=== PATIENT | female | born 1950 | race Caucasian/White ===

== ENCOUNTER 2017-01-23 05:09 | Emergency (ER) | payer MEDICARE, OTHER ==
[2017-01-23] MEDS ORDERED: HYDROmorphone HCL/PF 2 MG/ML DISP.SYRIN IVP ONE (05:44)
--- NOTE | 2017-01-23 05:49 | ED Physician Documentation ---
Shoulder Injury/Pain - HISTORIAN Historian: patient - HPI Stated Complaint: Fell to Rt shoulder Chief Complaint: Shoulder Injury/ Pain Additional Information: fell tripped, landing fully on her right shoulder, but not complaining of much pain. Onset: just prior to arrival Where: home Severity: mild Pain: persistent Context: fall Associated Symptoms: unable to move shoulder. denies: weakness, bruising, tingling, numbness Further Comments: no - ROS CONST: no problems CVS/RESP: none GI/: denies: nausea, vomiting MS/SKIN/LYMPH: none, foot swelling, ankle swelling. denies: neck pain, back pain NEURO: none - PAST HX Past History: Rt handed Allergies/Adverse Reactions: Allergies Allergy/AdvReac Type Severity Reaction Status Date / Time No Known Allergies Allergy Verified 01/23/17 05:29 Home Medications: Ambulatory Orders Medication Instructions Recorded Aspirin [Savanna] 81 mg PO D 01/23/17 Cholecalciferol [Vitamin D-3] 1,000 units PO D 01/23/17 Furosemide [Furosemide] 40 mg PO D 01/23/17 Lovastatin [Lovastatin] 40 mg PO D 01/23/17 Metoprolol Tartrate [Metoprolol 50 mg PO BID 01/23/17 Tartrate] Multivit-Min/FA/Lycopene/Lut 1 tab PO D 01/23/17 [Centrum Silver Tablet] - SOCIAL HX Smoking History: non-smoker Alcohol Use: none Drug Use: none - FAMILY HX Family History: none - VITAL SIGNS Vital Signs: Vital Signs Temp Pulse Resp BP Pulse Ox 79 20 125/74 96 01/23/17 05:09 01/23/17 05:09 01/23/17 05:09 01/23/17 05:09 - REVIEWED ASSESSMENT Nursing Assessment Reviewed: Yes Vitals Reviewed: Yes Progress - Progress Progress: spoke with ortho from dr carolynn hudson, he recommends dc'ing her home, to follow up this morning with in his clinic this AM. ED Results Lab/Radiology - Radiology Radiology Impressions: fracture dislocation R humeral head and neck - Orders Orders: ED Orders Category Date Time Status Place Saline Lock/IV Now Care 01/23/17 05:44 Active SHOULDER 2 VIEWS OR MORE [RAD] Stat Exams 01/23/17 Completed HYDROmorphone HCL/PF [Dilaudid] Med 01/23/17 05:44 Discontinued 2 mg IVP NOW ONE Shoulder Injury Physical Exam - Physical Exam General Appearance: no acute distress, alert Shoulder: deformity, AC drop-off, held in abduction, held in internal rotation Upper Extremity: no injury below shoulder Neuro: sensation nml. No: sensory deficit Vascular: no vascular compromise Skin: warm/dry, normal color Head/ENT: nml inspection Respiratory: chest non-tender CVS: reg rate & rhythm Abdomen: soft Discharge Clincal Impression: Fracture of humeral head, right, closed Qualifiers: Encounter type: initial encounter Qualified Code(s): S42.291A - Other displaced fracture of upper end of right humerus, initial encounter for closed fracture Dislocation, shoulder, anterior Qualifiers: Encounter type: initial encounter Laterality: right Qualified Code(s): S43.014A - Anterior dislocation of right humerus, initial encounter Fracture of neck of humerus Qualifiers: Encounter type: initial encounter Fracture type: closed Laterality: right Qualified Code(s): S42.211A - Unspecified displaced fracture of surgical neck of right humerus, initial encounter for closed fracture Referrals: Juan Lua DO [Primary Care Provider] - 2 Days Home Medications: Ambulatory Orders Aspirin [Savanna] 81 mg PO D 01/23/17 Cholecalciferol [Vitamin D-3] 1,000 units PO D 01/23/17 Furosemide [Furosemide] 40 mg PO D 01/23/17 Lovastatin [Lovastatin] 40 mg PO D 01/23/17 Metoprolol Tartrate [Metoprolol Tartrate] 50 mg PO BID 01/23/17 Multivit-Min/FA/Lycopene/Lut [Centrum Silver Tablet] 1 tab PO D 01/23/17 Condition: Good Disposition: 01 HOME, SELF-CARE Decision to Admit: NO Date of Decison to Admit: 01/23/17 Decision Time: 06:52
--- NOTE | 2017-01-23 06:39 | Diagnostic Imaging Report ---
YARELI POWELL [facility] [address] [facility] [address] [address] Report Submission Date: January 23, 2017 5:47:15 AM CDT Patient Study Name: DASH LUGO Date: January 23, 2017 5:29:19 AM CDT Modality Type: CR Gender: F Description: SHOULDER : [birth year] Institution: [facility] Physician: YARELI POWELL 3 views of the right shoulder History: PT FELL AND LANDED ON RIGHT SHOULDER The deep to the findings: No comparison studies There is an acute displaced fracture involving the right humeral head and neck, a 3.8 cm osseous fragment is noted laterally at the humeral head. Also, the humerus is anteroinferiorly dislocated with respect to the glenoid Acromioclavicular joint is intact Impression: Acute displaced, slightly impacted fracture involving the right humeral head and neck with large osseous fragment seen adjacent to the humeral head laterally Humeral shaft is anteroinferiorly dislocated/ subluxed with respect to the glenoid. Soft tissue swelling. Electronically signed on January 23, 2017 5:47:15 AM CDT by: Bette CATES
[2017-01-23] MEDS ORDERED: ONDANSETRON HCL/PF 4 MG/ 2ML VIAL ONE (06:55)
[2017-01-23] MEDS ORDERED: ONDANSETRON HCL/PF 4 MG/ 2ML VIAL IVP ONE (07:23)
[2017-01-23 07:43] VITALS: BP 128/74
== END 2017-01-23 07:10 | disposition home or self-care (01) ==
LOC: ED 05:09 → EDBD 05:09 → ED 07:10
DX: S42.291A Other displaced fracture of upper end of right humerus, initial encounter for closed fracture (principal); S43.014A Anterior dislocation of right humerus, initial encounter; S42.211A Unspecified displaced fracture of surgical neck of right humerus, initial encounter for closed fracture; W19.XXXA Unspecified fall, initial encounter; Y93.9 Activity, unspecified; Y99.9 Unspecified external cause status
CPT/HCPCS: 73030; J1170; J2405; 96374; 96375; 99283; 99284; S1016